=== PATIENT | male | born 1930 | race Caucasian/White ===

== ENCOUNTER 2017-01-05 09:00 | Inpatient (IN) | payer OTHER, MEDICARE ==
[2017-01-02 14:07] VITALS: BMI 24.2
[~2017-01-05 09:00] MED LIST: oxyCODONE HCL 10 MG SUSTAINED ACTING TABLET PO ONE
[2017-01-05] MEDS ORDERED: GELATIN, ABSORBABLE 100 EACH SPONGE TP ONE (11:52)
[2017-01-05] MEDS ORDERED: THROMBIN (BOVINE) 5,000 UNIT VIAL TP ONE (11:52)
[2017-01-05] MEDS ORDERED: LIDOCAINE 1%-EPI 1:100,000 30 ML MDV IJ ONE (11:52)
[2017-01-05] MEDS ORDERED: GUM MASTIC/STORAX/MSAL/ALCOHOL 1 DRP DROPSBTL MC ONE (11:52)
[2017-01-05] MEDS ORDERED: BUPIVACAINE HCL/PF 2.5 MG/ML - 30 ML VIAL IJ ONE (11:52)
[2017-01-05] MEDS ORDERED: MIDAZOLAM HCL 2 MG/2 ML SINGLE DOSE VIAL ONE ×2 (12:04)
[2017-01-05] MEDS ORDERED: BUPIVACAINE HCL/PF 0.5% (5MG/ML) 10 ML VIAL ONE (12:06)
[2017-01-05] MEDS ORDERED: LIDOCAINE HCL 1%, 10 MG/ML (50 mL VIAL) IJ ONE (12:15)
[2017-01-05] MEDS ORDERED: LIDOCAINE 1%/EPI 1:100000 (50 ML MULTI DOSE VIAL) INF ONE (12:15)
--- NOTE | 2017-01-05 12:17 | HP ---
History & Physical Update - History History: No Change - Physical Physical: No Change - Assessment Assessment: No Change - Plan Plan: No Change
[2017-01-05] MEDS ORDERED: PROMETHAZINE HCL 25 MG/1 ML VIAL IVPUSH PRN (13:28)
[2017-01-05] MEDS ORDERED: ONDANSETRON 4 MG/2 ML VIAL IVPUSH PRN (13:28)
[2017-01-05] MEDS ORDERED: LACTATED RINGERS SOLUTION 1,000 ML IV SCH ×2 (13:30→15:45)
[2017-01-05] MEDS ORDERED: BUPIVACAINE HCL/PF 0.25% (2.5MG/ML) 10 ML VIAL IJ ONE (14:54)
[2017-01-05] MEDS ORDERED: SUCCINYLCHOLINE CHLORIDE 200 MG/10 ML VIAL ONE (15:25)
[2017-01-05] MEDS ORDERED: ONDANSETRON 4 MG/2 ML VIAL IVPB PRN (15:31)
[2017-01-05] MEDS ORDERED: oxyCODONE HCL 5 MG TABLET PO PRN (15:31)
[2017-01-05] MEDS ORDERED: ACETAMINOPHEN INJECTION 100 ML IVPB ONE (15:52)
--- NOTE | 2017-01-05 15:58 | OP ---
Operative Note - Note: Operative Date: 01/05/17 Pre-Operative Diagnosis: lumbar spondylolithesis Operation: posterior lumbar decompression, instrumentation, fusion, transforaminal lumbar interbody fusion of L5-S1 with allograft and neuromonitoringposterior Post-Operative Diagnosis: Same as Pre-op Surgeon: Patel Benavidez Harness Inspector: Dianna Myers Anesthesiologist/AGRICULTURAL ENGINEERING TEACHER: Karen Faulkner Anesthesia: Spinal Estimated Blood Loss (mls): 30 Fluid Volume Replaced (mls): 700 Operative Report Dictated: Yes
[2017-01-05] MEDS ORDERED: ACETAMINOPHEN 1000 MG/100 ML VIAL (NON FORMULARY) IVPB ONE (16:00)
--- NOTE | 2017-01-05 16:00 | SURG ---
Surgery Senior Project Manager Note Date of Service: 01/05/17 Diagnosis: lumbar spondylolithesis Procedure: posterior lumbar decompression, instrumentation, fusion, transforaminal lumbar interbody fusion of L5-S1 with allograft and neuromonitoring I was present for the entirety of the operative procedure. For further detail, please refer to operative report. Visit type - Case Type Case Type: Scheduled Admission - Emergency Emergency Visit: No - New patient This patient is new to me today: Yes Date on this admission: 01/05/17 - Critical Care Critical Care patient: No
[2017-01-05] MEDS: traMADol HCL 50 MG TABLET PO SCH (17:48)
[2017-01-05] MEDS: CARBIDOPA/LEVODOPA 25/100 TABLET (FP) PO SCH ×2 (18:00→21:39)
[2017-01-05] MEDS ORDERED: ACETAMINOPHEN 325 MG TABLET (FP) ONE (20:39)
[2017-01-05] MEDS ORDERED: PT OWN MED DRAWER 7, Y5N ONE (21:13)
[2017-01-05] MEDS: ACETAMINOPHEN 325 MG TABLET (FP) PO SCH (21:39)
[2017-01-05] MEDS: CEFAZOLIN 1 GM/D5W 50 ML IVPB SCH (21:39)
[2017-01-05] MEDS ORDERED: LISINOPRIL 20 MG TABLET (FP) PO SCH (22:00)
[2017-01-05] MEDS ORDERED: TAMSULOSIN HCL 0.4 MG CAP.ER.24H (FP) PO SCH ×2 (22:00)
[2017-01-05] MEDS ORDERED: ATORVASTATIN CA 80 MG TABLET (FP) PO SCH (22:00)
[2017-01-05] MEDS ORDERED: HYDROCHLOROTHIAZIDE 25 MG TABLET (FP) PO SCH (22:00)
[2017-01-05] MEDS ORDERED: [UNRECOGNIZED DRUG - OTHER] OU SCH (22:00)
[2017-01-06] MEDS: ACETAMINOPHEN 325 MG TABLET (FP) PO SCH ×2 (04:00→09:24)
[2017-01-06 06:32] VITALS: TEMP 98.5
[2017-01-06] MEDS: traMADol HCL 50 MG TABLET PO SCH ×3 (06:33→12:57)
[2017-01-06] MEDS: CEFAZOLIN 1 GM/D5W 50 ML IVPB SCH (06:34)
--- NOTE | 2017-01-06 07:52 | DS ---
Physical Exam: SUBJECTIVE: Patient seen and examined. Patient having some pain, but improving. Patient tolerating diet, urinating without issue and ambulating with walker. OBJECTIVE: Vital Signs Temperature 98.5 F 01/06/17 06:00 Pulse Rate 69 01/06/17 06:00 Respiratory Rate 19 01/06/17 06:00 Blood Pressure 118/48 01/06/17 06:00 O2 Sat by Pulse Oximetry (%) 95 01/06/17 06:30 PHYSICAL EXAM GENERAL: The patient is awake, alert, in no acute distress. HEAD: Normal with no signs of trauma. EYES: PERRL, extraocular movements intact, sclera anicteric, conjunctiva clear. ENT: moist mucous membranes NECK: Trachea midline, full range of motion, supple. LUNGS: Breath sounds equal, clear to auscultation bilaterally, no wheezes, no crackles, no accessory muscle use. HEART: Regular rate and rhythm, S1, S2 without murmur, rub or gallop. ABDOMEN: Soft, nontender, nondistended, normoactive bowel sounds, no guarding, no rebound. EXTREMITIES: 2+ pulses, warm, well-perfused, no edema. NEUROLOGICAL: Cranial nerves II through XII grossly intact. Normal speech, gait not observed. Back, clean/dry/intact. PSYCH: Normal mood, normal affect. SKIN: Warm, dry, normal turgor, no rashes or lesions noted. LABS HOSPITAL COURSE: Date of Admission:01/05/17 Date of Discharge: 01/06/17 The patient was admitted to the Med-Surg Unit after an elective repair of their lumbar spondylolithesis. Now, s/p posterior lumbar decompression, instrumentation, fusion, transforaminal lumbar interbody fusion of L5-S1 with allograft and neuromonitoring. The day of surgery, the patient ambulated the hallways with assistance. Narcotic and non-narcotic pain management control was achieved with an oral and IV approach. POD #1, an xray was obtained and confirmed hardware placement, no fractures or dislocations. Cathy-operative IV ABX were administered. DVT prophylaxis was achieved with SCDs and early ambulation. The patient ambulated with Physical Therapy and will be discharged home with a walker. Narcotic scripts and or muscle relaxants were checked with [facility] prior to escibe. The discharge instructions and an oral pain management plan were reviewed with the patient. All questions answered. Above plan discussed with Dr. Benavidez and agreed. Minutes to complete discharge: 30 <Beatriz Aldrich - Last Filed: 01/06/17 12:23> Physical Exam: SUBJECTIVE: Patient seen and examined OBJECTIVE: Vital Signs Temperature 98.5 F 01/06/17 14:00 Pulse Rate 70 01/06/17 14:00 Respiratory Rate 19 01/06/17 14:00 Blood Pressure 110/58 01/06/17 14:00 O2 Sat by Pulse Oximetry (%) 95 01/06/17 06:30 PHYSICAL EXAM GENERAL: The patient is awake, alert, and fully oriented, in no acute distress. HEAD: Normal with no signs of trauma. EYES: PERRL, extraocular movements intact, sclera anicteric, conjunctiva clear. ENT: Ears normal, nares patent, oropharynx clear without exudates, moist mucous membranes. NECK: Trachea midline, full range of motion, supple. LUNGS: Breath sounds equal, clear to auscultation bilaterally, no wheezes, no crackles, no accessory muscle use. HEART: Regular rate and rhythm, S1, S2 without murmur, rub or gallop. ABDOMEN: Soft, nontender, nondistended, normoactive bowel sounds, no guarding, no rebound, no hepatosplenomegaly, no masses. EXTREMITIES: 2+ pulses, warm, well-perfused, no edema. NEUROLOGICAL: Cranial nerves II through XII grossly intact. Normal speech, gait not observed. PSYCH: Normal mood, normal affect. SKIN: Warm, dry, normal turgor, no rashes or lesions noted. LABS CBC,CMP WBC 11.1 K/mm3 (4.0-10.8) H 01/06/17 07:30 RBC 4.00 M/mm3 (4.00-5.60) 01/06/17 07:30 Hgb 12.1 GM/dl (11.7-16.9) 01/06/17 07:30 Hct 36.6 % (35.4-49) 01/06/17 07:30 MCV 91.3 fl (80-96) 01/06/17 07:30 MCHC 33.1 g/dl (32.0-35.9) 01/06/17 07:30 RDW 12.3 % (11.9-15.9) 01/06/17 07:30 Plt Count 282 K/MM3 (134-434) 01/06/17 07:30 MPV 8.0 fl (7.5-11.1) 01/06/17 07:30 Sodium 137 mmol/L (136-145) 01/06/17 07:30 Potassium 3.7 mmol/L (3.5-5.1) 01/06/17 07:30 Chloride 98 mmol/L (98-107) 01/06/17 07:30 Carbon Dioxide 28 mmol/L (22-28) 01/06/17 07:30 Anion Gap 11 (8-16) 01/06/17 07:30 BUN 26 mg/dl (7-18) H 01/06/17 07:30 Creatinine 1.1 mg/dl (0.6-1.3) 01/06/17 07:30 Random Glucose 106 mg/dl (74-106) 01/06/17 07:30 Calcium 9.2 mg/dl (8.4-10.2) 01/06/17 07:30 HOSPITAL COURSE: Date of Admission:01/05/17 Date of Discharge: 01/09/17 The patient was admitted to the Med-Surg Unit after an elective repair of their spinal stenosis. Now, s/p Lumbar Fusion. The day of surgery, the patient ambulated the hallways with assistance. Narcotic and non-narcotic pain management control was achieved with an oral and IV approach. POD #1, the surgical drain was removed fully intact and without incident. An xray was obtained and confirmed hardware placement at L5-S1, no fractures or dislocations. Cathy-operative IV ABX were administered. DVT prophylaxis was achieved with SCDs and early ambulation. The patient ambulated with Physical Therapy and no services were recommended upon discharge. Narcotic scripts and or muscle relaxants were checked with [place] [facility] prior to escibe. The discharge instructions and an oral pain management plan were reviewed with the patient. All questions answered. Above plan discussed with Dr. Benavidez and agreed. <Patel Benavidez - Last Filed: 01/09/17 13:19> Visit type - Case Type Case Type: Scheduled Admission <Beatriz Aldrich - Last Filed: 01/06/17 12:23>
[2017-01-06 08:43] LABS: ANION GAP 11 (8-16); CALCIUM 9.2 mg/dl (8.4-10.2); CO2 28 mmol/L (22-28); CREATININE 1.1 mg/dl (0.6-1.3); GLUCOSE,RANDOM 106 mg/dl (74-106)
[2017-01-06 08:46] LABS: MCH 30.2 pg (25.7-33.7); MCHC 33.1 g/dl (32.0-35.9); MEAN CELL VOLUME 91.3 fl (80-96); PLATELET COUNT 282 K/MM3 (134-434); RDW 12.3 % (11.9-15.9); WHITE BLOOD COUNT 11.1 K/mm3 (4.0-10.8)
[2017-01-06] MEDS ORDERED: KETOROLAC TROMETHAMINE 15 MG/ML VIAL IVPUSH ONE (09:00)
[2017-01-06] MEDS: CARBIDOPA/LEVODOPA 25/100 TABLET (FP) PO SCH ×2 (09:24→14:21)
--- NOTE | 2017-01-06 09:29 | OP ---
DATE OF OPERATION: 01/05/2017 PREOPERATIVE DIAGNOSIS: Spinal stenosis at L5-S1. POSTOPERATIVE DIAGNOSIS: Spinal stenosis at L5-S1. PROCEDURES PERFORMED: 1. Transforaminal lumbar interbody fusion at L5-S1. 2. Placement of instrumentation at L5-S1. 3. Placement of prosthetic cage. 4. Hemilaminectomy. SURGEON: Patel Benavidez MD ACCESS SERVICES LIBRARIAN: NATALIA Braxton ESTIMATED BLOOD LOSS: 50 mL. INTRAVENOUS FLUIDS: Per Anesthesia. ANESTHESIA: Spinal. COMPLICATIONS: There were none. DISPOSITION: The patient was brought to the PACU in stable condition. INDICATION FOR SURGERY: The patient is an 86-year-old gentleman who has been suffering from pain from his back down his right leg for many years. He had previously undergone a laminectomy and developed stenosis again at that level. He also had a significant amount of pain in his back. He had gone through an exhaustive course of treatment for this which included medications, physical therapy, as well as injections. Unfortunately, his pain continued to persist, despite all of this. At this point, risks, benefits, and alternatives were discussed, and the patient consented to surgery. OPERATIVE NOTE: The patient was brought to the operating room by the anesthesia staff. After appropriate patient identification was performed, spinal anesthesia was given. He was able to position himself prone onto the OR table and pad his bony prominences. The C-arm was brought in and the L5-S1 pedicles were marked off. Lidocaine with epinephrine of 10 mL was injected into his back, at this time. His back was prepped and draped in a sterile manner. At this point, a timeout was completed. Incision was made bilaterally over the L5-S1 pedicles. Dissection was carried down to the fascia. The fascia was then split open, at this time. Under C-arm guidance, trocars were advanced into both the L5 and S1 pedicles. Through the trocars, wires were inserted. The trocars were removed. Over the wires, tap was performed and screws were inserted. On the right-hand side, retractor blades were set up to expose the L5-S1 facet joint. The facet joint was removed. The disk was entered using a series of pituitaries, Kerrisons and curettes. A diskectomy was completed. The endplates were decorticated, at this time. The space was filled with bone graft and a cage. The hemilaminectomy was completed. A 2.0 head was placed over the screw. Daron was placed in. Caps were placed on, compression was applied, and final tightening was applied. Left hand-sided daron was measured and placed on. The caps were placed on. Compression and final tightening was applied. All extra instrumentation was removed, at this time. AP and lateral x-rays confirmed the instrumentation to be in good position. The fascia was closed with a number 1 Vicryl suture. The subcutaneous tissues were closed with 2-0 Vicryl suture. Skin was closed with 3-0 Monocryl suture. Dermabond was applied. A sterile dressing was applied. The patient was placed supine on the OR bed and brought to the PACU in stable condition. Veena TREJO/[id number]
[2017-01-06] MEDS ORDERED: ISOSORBIDE MONONITRATE 60 MG TAB.SR.24H (FP) PO SCH (10:00)
--- NOTE | 2017-01-06 12:28 | PN ---
Progress Note (short form) - Note Progress Note: 86M POD1 s/p lumbar fusion under spinal anesthetic doing well. Pt reports no anesthetic complications, AVSS, reports minimal pain. Sensory and motor function intact in both lower extremities.
[2017-01-06 15:12] VITALS: BP 110/58; PULSE 70
== END 2017-01-06 15:00 | disposition home health service (06) | DRG 460 ==
LOC: FM/S 10:46
PROVIDERS: ADMIT Orthopaedic Surgery Orthopaedic Surgery of the Spine; ATTEND Orthopaedic Surgery Orthopaedic Surgery of the Spine
PROC: 0SB40ZZ Excision of Lumbosacral Disc, Open Approach (ICD-10-PCS; 2017-01-05)
PROC: 0SG30A1 (ICD-10-PCS; principal; 2017-01-05 13:25)
DX: M48.07 Spinal stenosis, lumbosacral region (principal); I10 Essential (primary) hypertension; N40.0 Benign prostatic hyperplasia without lower urinary tract symptoms; I25.10 Atherosclerotic heart disease of native coronary artery without angina pectoris; G20 Parkinson's disease; Z95.5 Presence of coronary angioplasty implant and graft
CPT/HCPCS: 36415; 72100-TC; 76001-TC; 80048; 85027; 94010; 94760; 97116-GP; 97162-PG